=== PATIENT | female | born 1940 | race Caucasian/White ===

== ENCOUNTER 2017-06-17 12:29 | Outpatient (CLI) | payer MEDICARE, BC ==
[~2017-06-17 12:29] MED LIST: Iopamidol 370 76% 100 ML VIAL ONE
== END 2017-06-17 12:30 | disposition home or self-care (01) ==
LOC: BICCT 12:29
PROVIDERS: ATTEND Internal Medicine Pulmonary Disease
DX: R91.1 Solitary pulmonary nodule (principal); R91.8 Other nonspecific abnormal finding of lung field
CPT/HCPCS: 71260

== ENCOUNTER 2018-06-06 13:49 | Outpatient (CLI) | payer MEDICARE, BC ==
--- NOTE | 2018-06-06 15:10 | ULT ---
DOPPLER VENOUS ULTRASOUND OF THE LEFT LOWER EXTREMITY: Date: 06/06/18 INDICATION: Left lower extremity edema. TECHNIQUE: Kemp scale, color Doppler, and vascular duplex with spectral analysis was performed of the deep venou s structures of the left lower extremity. The common femoral vein, superficial femoral vein, proximal greater saphenous vein, proximal greater profunda vein, popliteal, and posterior tibial veins were a ssessed. FINDINGS: Normal compression, flow, and augmentation was seen within the deep venous structures of the left low er extremity. IMPRESSION: No evidence of deep venous thrombosis within the left lower extremity. POS: MARKIE
== END 2018-06-06 13:50 | disposition home or self-care (01) ==
LOC: SCSULT 13:49
PROVIDERS: ATTEND Radiology Radiation Oncology
DX: R60.0 Localized edema (principal); C50.112 Malignant neoplasm of central portion of left female breast

== ENCOUNTER 2018-06-14 09:24 | Outpatient (CLI) | payer MEDICARE, BC ==
[~2018-06-14 09:24] MED LIST changes: +ISOVUE-370 76%-LOCM 1 ML ONE; -Iopamidol 370 76% 100 ML VIAL ONE
--- NOTE | 2018-06-14 11:06 | CT ---
CT CHEST WITH CONTRAST: HISTORY: History of lung nodules. Followup. The patient has a history of recent breast cancer. Lumpectomy l ast month. The patient also has a history of thyroid cancer. COMPARISON: 06/17/2017 and 04/27/2016 TECHNIQUE: Contrast enhanced CT images of the chest are obtained. FINDINGS: Images demonstrate nonvisualization of the thyroid gland. Small subcentimeter nodular densities are seen in the right middle lobe. Multiple lesions are presen t. These have not significantly changed since the previous comparison CT from 06/17/2017. Numerous subpleural nodular densities are seen. These are also present in the left lower lobe. All these les ions have not significantly changed since the previous exam. No evidence of mediastinal, axillary, o r hilar lymphadenopathy is seen. Surgical changes are seen in the left breast. There is a moderate sized hiatal hernia present. Adrenal glands are unremarkable. Hepatic steatosis is present. IMPRESSION: Stable multiple lung parenchymal nodules, unchanged since the previous examination. POS: MARKIE
== END 2018-06-14 09:25 | disposition home or self-care (01) ==
LOC: BICCT 09:24
PROVIDERS: ATTEND Internal Medicine Pulmonary Disease
DX: R91.8 Other nonspecific abnormal finding of lung field (principal)
CPT/HCPCS: 71260; Q9966

== ENCOUNTER 2020-03-04 12:59 | Outpatient (CLI) | payer MEDICARE, BC ==
--- NOTE | 2020-03-04 14:08 | RAD ---
PA AND LATERAL CHEST: Date: 03/04/2020 HISTORY: Dyspnea. COMPARISON: 08/28/2019 exam. FINDINGS: Heart size is slightly enlarged. There are atherosclerotic changes of the aorta. Chronic appearing kassandra ng changes are seen. No definite acute process. IMPRESSION: Chronic lung change. Stable chest. POS: DONALD
== END 2020-03-04 13:00 | disposition home or self-care (01) ==
LOC: BICRAD 12:59
PROVIDERS: ATTEND Internal Medicine Pulmonary Disease
DX: R06.00 Dyspnea, unspecified (principal); J98.4 Other disorders of lung
CPT/HCPCS: 71046

== ENCOUNTER 2020-12-03 12:48 | Outpatient (CLI) | payer MEDICARE, BC | END 2020-12-03 12:49 | disposition home or self-care (01) | LOC: BICRAD 12:48 | PROVIDERS: ATTEND Internal Medicine Pulmonary Disease | DX: R06.00 Dyspnea, unspecified (principal) | CPT/HCPCS: 71046 ==

== ENCOUNTER 2021-07-04 10:04 | Outpatient (CLI) | payer MEDICARE, BC | END 2021-07-04 10:05 | disposition home or self-care (01) | LOC: BICMAMMO 10:04 | PROVIDERS: ATTEND Family Medicine | DX: Z08 Encounter for follow-up examination after completed treatment for malignant neoplasm (principal); Z85.3 Personal history of malignant neoplasm of breast | CPT/HCPCS: 77066; G0279 ==

== ENCOUNTER 2021-12-22 14:27 | Outpatient (CLI) | payer MEDICARE, BC | END 2021-12-22 14:28 | disposition home or self-care (01) | LOC: RAD 14:27 | PROVIDERS: ATTEND Internal Medicine | DX: R06.00 Dyspnea, unspecified (principal) | CPT/HCPCS: 71046 ==

== ENCOUNTER 2022-07-15 12:49 | Outpatient (CLI) | payer MEDICARE, BC | END 2022-07-15 12:50 | disposition home or self-care (01) | LOC: BICMAMMO 12:49 | PROVIDERS: ATTEND Internal Medicine Hematology & Oncology | DX: C50.912 Malignant neoplasm of unspecified site of left female breast (principal); C50.112 Malignant neoplasm of central portion of left female breast | CPT/HCPCS: 77066; G0279 ==

== ENCOUNTER 2024-01-31 11:15 | Outpatient (CLI) | payer MEDICARE, BC | END 2024-01-31 11:16 | disposition home or self-care (01) | LOC: SCSMRI 11:15 | PROVIDERS: ATTEND Nurse Practitioner Family | DX: M54.14 Radiculopathy, thoracic region (principal) | CPT/HCPCS: 72146 ==

== ENCOUNTER 2024-02-18 10:00 | Outpatient (CLI) | payer MEDICARE, BC | END 2024-02-18 10:01 | disposition home or self-care (01) | LOC: SCSMRI 10:00 | PROVIDERS: ATTEND Nurse Practitioner Family | DX: M54.14 Radiculopathy, thoracic region (principal) | CPT/HCPCS: 72147; 82565 ==

== ENCOUNTER 2024-12-06 17:17 | Emergency (ER) | payer MEDICARE, BC ==
[2024-12-06 20:20] LABS: #Basophils 0.08 10x3/uL (0.0-0.2); #Eosinophils 0.14 10x3/uL (0.0-0.7); #Monocytes 0.80 10x3/uL (0.11-0.59); #Neutrophils 5.64 10x3/uL (1.40-6.50); %Basophils 0.9 % (0.0-1.0); %Eosinophils 1.6 % (0.0-10.0); %Lymphocytes 25.0 % (21.0-51.0); %Monocytes 9.0 % (0.0-10.0); %Neutrophils 63.2 % (42.0-75.0); Hematocrit 37.4 % (36.0-47.0); Hemoglobin 11.8 g/dL (12.0-16.0); Mean Corpuscular Hemoglobin 25.9 pg (27.0-31.0); Mean Corpuscular Volume 82.2 fL (78.0-98.0); Platelet Count 274 10x3/uL (130-400); Red Blood Cell (RBC) Count 4.55 mill/uL (4.20-5.40); White Blood Cell (WBC) Count 8.92 10x3/uL (4.8-10.8)
[2024-12-06 20:35] LABS: ALT (SGPT) 10 U/L (Less than 34); AST (SGOT) 25 U/L (11-34); Albumin 3.6 g/dL (3.1-4.5); Alkaline Phosphatase 79 U/L (40-110); Anion Gap 17 mmol/L (10-20); BUN (Urea Nitrogen) 22 mg/dL (9.8-20.1); Bilirubin, Total 0.4 mg/dL (0.3-1.2); Calc. Creatinine Clearance 0 mL/min (70-130); Calcium 9.1 mg/dL (7.8-10.44); Carbon Dioxide 23 mmol/L (23-31); Chloride 107 mmol/L (98-107); Globulin 3.6 g/dL (2.4-3.5); Glucose 109 mg/dL (83-110); Potassium 4.1 mmol/L (3.5-5.1); Sodium 143 mmol/L (136-145)
[2024-12-06 21:45] LABS: Bacteria/HPF 2+ HPF (None Seen); CAUTI Indications for Culture Alt mental st,lethar; Glucose, Urine (Dipstick) Normal (Negative); Leukocyte 500 Leu/uL (Negative); Protein, Urine (Dipstick) Negative (Neg-Trace); RBC/HPF 0-3 HPF (0-3); Specific Gravity, Urine 1.011 (1.002-1.036); WBC/HPF Greater than 50 HPF (0-3)
[2024-12-06 21:52] LABS: Urine Culture Reflex Yes Yes
== END 2024-12-07 00:36 ==
LOC: ERS 17:17
DX: M54.2 Cervicalgia (principal); M25.552 Pain in left hip; N39.0 Urinary tract infection, site not specified; Z79.899 Other long term (current) drug therapy; Z79.890 Hormone replacement therapy; W19.XXXA Unspecified fall, initial encounter; Y92.59 Other trade areas as the place of occurrence of the external cause
CPT/HCPCS: 70450; 72125; 72128; 72170; 80053; 81001; 85025; 87086